=== PATIENT | female | born 1955 | race Caucasian/White ===

== ENCOUNTER → 2016-03-23 | Outpatient (CLI) | payer BC | END | disposition home or self-care (01) | LOC: LAB.O 08:00 | PROVIDERS: ATTEND Internal Medicine Infectious Disease | DX: Z89.429 Acquired absence of other toe(s), unspecified side (principal) ==

== ENCOUNTER → 2016-03-25 | Outpatient (CLI) | payer BC | END | disposition home or self-care (01) | LOC: LAB.O 08:21 | PROVIDERS: ATTEND Internal Medicine Infectious Disease | DX: L97.513 Non-pressure chronic ulcer of other part of right foot with necrosis of muscle (principal) ==

== ENCOUNTER → 2016-03-29 | Outpatient (CLI) | payer BC | END | disposition home or self-care (01) | LOC: LAB.O 09:38 | PROVIDERS: ATTEND Family Medicine | DX: L97.513 Non-pressure chronic ulcer of other part of right foot with necrosis of muscle (principal) ==

== ENCOUNTER → 2016-09-05 | Outpatient (CLI) | payer BC | END | disposition home or self-care (01) | LOC: GMAL 10:14 | PROVIDERS: ATTEND Family Medicine | DX: Z00.01 Encounter for general adult medical examination with abnormal findings (principal) ==

== ENCOUNTER → 2016-10-19 | Outpatient (CLI) | payer SELFPAY | LOC: GMAL 10:50 | PROVIDERS: ATTEND Family Medicine | DX: D53.9 Nutritional anemia, unspecified (principal) ==

== ENCOUNTER 2016-11-28 09:28 | Observation (INO) | payer BC ==
[2016-11-28] MEDS ORDERED: cefTRIAXone SODIUM 1 GM in SODIUM CHL 0.9% 50ML MIN-BAG+ 50 ML IVPB ONE (10:39)
[2016-11-28] MEDS ORDERED: SODIUM CHLORIDE 0.9% 1000ML 1,000 ML IVS ONE (10:40)
[2016-11-28] MEDS ORDERED: POTASSIUM CHLORIDE INJ 40 MEQ 40 MEQ in SODIUM CHLORIDE 0.9% 250ML 250 ML IVPB ONE (10:40)
--- NOTE | 2016-11-28 10:41 | RAD ---
EXAM DESCRIPTION: Abdomen Series CLINICAL HISTORY: vomiting, no bm in 8 days COMPARISON: November 07, 2016 FINDINGS: AP supine and upright views of the abdomen show a nonspecific, nonobstructive bowel gas pattern with no evidence for free intraperitoneal air. Surgical clips from cholecystectomy are seen. No air-filled dilated loops of small bowel are seen. No significant air-fluid levels are identified. No obvious organomegaly is seen. No abnormal calcifications are seen in the expected location of the renal collecting systems. Normal-appearing amount of formed fecal material throughout the colon is seen without obvious radiographic evidence of fecal impaction. Single view of the chest shows cardiac silhouette and pulmonary vasculature to be within normal limits. Lungs are normally aerated and clear. Left subclavian Mediport appears in good positioning with tip in the midsuperior vena cava. IMPRESSION: Nonspecific abdominal series Electronically signed by: Obdulio Gonzales MD 11/28/2016 10:39 AM CDT
[2016-11-28] MEDS ORDERED: METOCLOPRAMIDE HCL INJ 10 MG/2 ML VIAL IV ONE (10:58)
[2016-11-28] MEDS ORDERED: FLUCONAZOLE 150 MG TAB PO ONE (10:58)
[2016-11-28] MEDS ORDERED: cefTRIAXone SODIUM 1 GM VIAL ONE (11:09)
[2016-11-28] MEDS ORDERED: SODIUM CHL 0.9% 50ML MIN-BAG+ 50 ML IVPB ONE (11:09)
--- NOTE | 2016-11-28 11:20 | ED.PDOC ---
History of Present Illness - General Chief Complaint: GI Problem Stated Complaint: nausea and vomiting Time Seen by Provider: 11/28/16 09:42 Source: patient Exam Limitations: no limitations - History of Present Illness Initial Comments: The patient is a 61-year-old female presenting to the emergency room secondary to nausea and vomiting that been going on for at least the last couple of days. She has had nausea for longer than that. She does have a long- standing history of gastroparesis as well as chronic constipation. She has been unable to take her daily oral medications for the last 24-48 hours. She has thrown up a bunch of them. She reports her blood sugars have been well controlled and she has been taking her insulin. She is not having any abdominal pain. She has not had a bowel movement in 8 days which is not entirely unusual for her. She was treated for constipation by her primary care doctor 2 or 3 weeks ago. She reports having fever 2 or 3 weeks ago but none in the last 10 days. No syncope. She is feeling weaker since she's been unable to tolerate even liquids to some extent. She has no real abdominal pain and palpation. She is morbidly obese. She does have a large ventral hernia that is chronic. It is nontender to palpation. Due to the obesity I am uncertain whether this is entirely reducible.the patient has a CT scan of the abdomen and pelvis in 2014 was reassuring. She also had endoscopies apparently performed towards the end of 2014 that showed only a colonic polyp. This is by secondhand information.he has had a history of breast cancer. Timing/Duration: unsure Severity: moderate Improving Factors: nothing Worsening Factors: nothing Associated Symptoms: loss of appetite, malaise, nausea/vomiting Allergies/Adverse Reactions: Allergies Penicillin G Allergy (Mild, Verified 07/30/14 16:51) Rash white blisters BEATRIZ Inhibitors Adverse Reaction (Severe, Verified 07/30/14 16:50) Other bottoms out BP Escitalopram [From Lexapro] Adverse Reaction (Mild, Verified 07/30/14 16:50) Cough Home Medications: Ambulatory Orders Csakanbxzwphd-Gsos-Kboyhzipyd [Fioricet] 1 ea PO Q6H PRN 12/07/12 Insulin Regular (Human) [Humulin R] 50 unit IJ BID 12/07/12 Insulin,Isop(Human(NPH) [Humulin N] 70 units BID 12/07/12 Nortriptyline HCl 75 mg PO BEDTIME 12/07/12 Omeprazole [Prilosec Cap] 40 mg PO DAILY 12/07/12 Oxybutynin Chloride 5 mg PO BID 12/07/12 Pravastatin Sodium 40 mg PO BEDTIME 12/07/12 Carbidopa-Levodopa [Carbidopa/Levodopa 25-100 mg] 1 tab PO BEDTIME 05/19/14 Losartan Potassium [Cozaar] 50 mg PO DAILY 05/19/14 Metformin HCl 500 mg PO BID 05/19/14 Pregabalin [Lyrica] 50 mg PO BEDTIME 05/19/14 Promethazine HCl 25 mg PO PRN PRN 05/19/14 Tamoxifen Citrate 20 mg PO DAILY 05/19/14 Cefdinir 300 mg PO BID #14 cap 01/10/15 Review of Systems - Review of Systems Constitutional: States: malaise EENTM: States: no symptoms reported Respiratory: States: no symptoms reported Cardiology: States: no symptoms reported Gastrointestinal/Abdominal: States: constipation, nausea, vomiting. Denies: abdominal pain, diarrhea Genitourinary: States: no symptoms reported Musculoskeletal: States: other - chronic pains only Skin: States: no symptoms reported Neurological: States: no symptoms reported - hronic neuropathy Endocrine: States: increased thirst Hematologic/Lymphatic: States: no symptoms reported All other Systems: No Change from Baseline Past Medical History (General) - Patient Medical History Hx Stroke: No Hx Asthma: Yes Hx of COPD: No Hx Cardiac Disorders: Yes Hx Congestive Heart Failure: No Hx Pacemaker: No Hx Hypertension: Yes Hx Diabetes: Yes Hx Gastroesophageal Reflux: Yes Hx Cancer: - Tumor removed from left breast Hx MRSA: No Surgical History: cholecystectomy, tonsillectomy - Vaccination History Hx Influenza Vaccination: Yes - 2017 Hx Pneumococcal Vaccination: Yes - 2016 - Social History Hx Tobacco Use: No Hx Alcohol Use: No Hx Substance Use: No Hx Substance Use Treatment: No Hx Depression: No - Activities of Daily Living Hospice Agency (if applicable):: None - Female History Patient is a Female of Child Bearing Age (10 -59 yrs old): No Family Medical History - Family History Father Living Status: Hx Cardiac Disease: Yes Hx Family Diabetes: Yes Physical Exam - Physical Exam General Appearance: Alert, Comfortable, No apparent distress Eye Exam: bilateral normal Ears, Nose, Throat: hearing grossly normal, normal ENT inspection, normal pharynx Neck: full range of motion, normal inspection Respiratory: lungs clear, normal breath sounds, no respiratory distress, no accessory muscle use Cardiovascular/Chest: normal peripheral pulses, regular rate, rhythm, no edema Peripheral Pulses: radial,right: 2+, radial,left: 2+ Gastrointestinal/Abdominal: non tender, soft, other - see history of present illness Rectal Exam: deferred Back Exam: no CVA tenderness, no vertebral tenderness Extremity: normal range of motion - for the left lower extremity. 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 Skin Exam: normal color - ith the exception of some abrasions to her left lower extremity Comments: Vital Signs - 24 hr 11/28/16 09:36 Temperature 98.2 F Pulse Rate [ 82 pulse ox] Respiratory 20 Rate Blood Pressure 120/69 [Right Arm] O2 Sat by Pulse 99 Oximetry Progress - Progress Progress: 11/28/16 11:23 the patient is a 61-year-old female presenting with uncontrolled nausea and vomiting and inability to hold her oral medications. She does have a long-standing history of gastroparesis which is likely worsened by her inability to take her Reglan. She is receiving some IV fluids for mild dehydration and a dose of IV Reglan. Additionally she does appear to have a significant urinary tract infection and is receiving a dose of IV Rocephin. There is also significant yeast in her urine and she is receiving a dose of Diflucan orally for now. She may have to be dosed otherwise if she throws this up. She does have a known ventral hernia but it does not appear to be causing her any discomfort at this time. If vomiting persists after treatment of above then further evaluation of this may be warranted. Blood sugars appear to be fairly well controlled at this time. She does additionally have some hypokalemia and is receiving some IV potassium. tHis will have to be followed. - Results/Orders Results/Orders: acute abdominal series shows no evidence of obstruction, perforationor significant constipation at this time. Laboratory Tests 11/28/16 11/28/16 11/28/16 10:15 10:15 10:15 WBC 10.8 RBC 3.66 L Hgb 10.3 L Hct 30.8 L MCV 84.2 MCH 28.1 MCHC 33.3 RDW 13.1 Plt Count 296 MPV 7.4 Absolute Neuts (auto) 8.90 H Absolute Lymphs (auto) 1.20 Absolute Monos (auto) 0.60 Absolute Eos (auto) 0.10 Absolute Basos (auto) 0.10 Neutrophils % 82.1 H Lymphocytes % 10.9 L Monocytes % 5.9 Eosinophils % 0.6 L Basophils % 0.5 Sodium 137 Potassium 3.1 L Chloride 103 Carbon Dioxide 25 Anion Gap 12.1 BUN 12 Creatinine 0.85 BUN/Creatinine Ratio 14.1 Random Glucose 114 H Serum Osmolality 274.4 L Lactic Acid 1.7 Calcium 8.7 Magnesium 1.9 Total Bilirubin 0.7 AST 30 ALT 32 Alkaline Phosphatase 75 Creatine Kinase 22 L CK-MB (CK-2) 0.8 Troponin I < 0.02 Serum Total Protein 6.8 Albumin 2.7 L Globulin 4.1 H Albumin/Globulin Ratio 0.7 L Amylase 30 Lipase 20 L TSH 3.17 Urine Color Urine Appearance Urine pH Ur Specific [place] Urine Protein Urine Glucose (UA) Urine Ketones Urine Blood Urine Nitrite Urine Bilirubin Urine Urobilinogen Ur Leukocyte Esterase Urine RBC Urine WBC Ur Epithelial Cells Urine Bacteria Urine Yeast 11/28/16 10:25 WBC RBC Hgb Hct MCV MCH MCHC RDW Plt Count MPV Absolute Neuts (auto) Absolute Lymphs (auto) Absolute Monos (auto) Absolute Eos (auto) Absolute Basos (auto) Neutrophils % Lymphocytes % Monocytes % Eosinophils % Basophils % Sodium Potassium Chloride Carbon Dioxide Anion Gap BUN Creatinine BUN/Creatinine Ratio Random Glucose Serum Osmolality Lactic Acid Calcium Magnesium Total Bilirubin AST ALT Alkaline Phosphatase Creatine Kinase CK-MB (CK-2) Troponin I Serum Total Protein Albumin Globulin Albumin/Globulin Ratio Amylase Lipase TSH Urine Color Yellow Urine Appearance Sl cloudy Urine pH 6.0 Ur Specific [place] 1.015 Urine Protein 30 Urine Glucose (UA) Negative Urine Ketones Negative Urine Blood Trace-intact H Urine Nitrite Negative Urine Bilirubin Negative Urine Urobilinogen 2.0 H Ur Leukocyte Esterase Small H Urine RBC 5-10 H Urine WBC Tntc H Ur Epithelial Cells 20-30 Urine Bacteria 3+ H Urine Yeast 1+ budding H Departure - Departure Clinical Impression: Hypokalemia, Cystitis Vomiting Qualifiers: Vomiting type: unspecified Vomiting Intractability: non-intractable Nausea presence: with nausea Qualified Code(s): R11.2 - Nausea with vomiting, unspecified Disposition: Admit Patient Referrals: Jonathan Johnson III, MD [Primary Care Provider] - 1-2 Weeks Home Medications: Ambulatory Orders Xsxjnsercbnbi-Aiiv-Gzslkzbkhz [Fioricet] 1 ea PO Q6H PRN 12/07/12 Insulin Regular (Human) [Humulin R] 50 unit IJ BID 12/07/12 Insulin,Isop(Human(NPH) [Humulin N] 70 units BID 12/07/12 Nortriptyline HCl 75 mg PO BEDTIME 12/07/12 Omeprazole [Prilosec Cap] 40 mg PO DAILY 12/07/12 Oxybutynin Chloride 5 mg PO BID 12/07/12 Pravastatin Sodium 40 mg PO BEDTIME 12/07/12 Carbidopa-Levodopa [Carbidopa/Levodopa 25-100 mg] 1 tab PO BEDTIME 05/19/14 Losartan Potassium [Cozaar] 50 mg PO DAILY 05/19/14 Metformin HCl 500 mg PO BID 05/19/14 Pregabalin [Lyrica] 50 mg PO BEDTIME 05/19/14 Promethazine HCl 25 mg PO PRN PRN 05/19/14 Tamoxifen Citrate 20 mg PO DAILY 05/19/14 Cefdinir 300 mg PO BID #14 cap 01/10/15 Decision To Admit - Decistion To Admit Decision to Admit Reason: Medical Nature Decision to Admit Date: 11/28/16 Decision to Admit Time: 11:25
[2016-11-28] MEDS ORDERED: SODIUM CHLORIDE 0.9% 250ML 250 ML ONE (11:23)
[2016-11-28] MEDS ORDERED: POTASSIUM CHLORIDE 40mEq 20ML VIAL ONE (11:23)
[2016-11-28] MEDS ORDERED: CHLORHEXIDINE GLUCONATE 4 % 15 ML UD TOP ONE (12:31)
--- NOTE | 2016-11-28 12:32 | HP ---
SUPERVISING PHYSICIAN: Xander Vila M.D. CHIEF COMPLAINT: Nausea and vomiting. HISTORY OF PRESENT ILLNESS: Ms. Lockwood is a 61 year-old female patient that initially presented to the Emergency Department due to nausea and vomiting that she had been having for the last several days. She does have a longstanding history of gastroparesis as well as some chronic constipation. Due to the nausea and vomiting, she has not been able to take her normal daily oral medications for the last 48 hours which include Reglan. She notes that her blood sugars have remained well controlled and she has been taking her insulin as normal. She has had some mild abdominal pains mainly in the left upper quadrant and then noted that she has not had a decent bowel movement in 8 days. She was recently treated for constipation by her primary care physician, Dr. Johnson, within the last several weeks and was started on Linzess. She notes that she is beginning to feel weak secondary to unable to have adequate p.o. intake. Given that the patient is also an insulin-dependent diabetic and has a longstanding history of gastroparesis, and has not been able to hold any oral medications down, Dr. Zacarias, E. R. physician, requested that the patient be placed in Observation for further evaluation and treatment in regards to the underlying gastroparesis and constipation. It was also noted on laboratory studies that she had a urinary tract infection. A few of her laboratory studies showed that her white count was within normal limits but she did have an early left shift. Chemistries showed she had a mild hypokalemia which was started on correction in the Emergency Department with IV potassium. Her glucose was 114, lactic acid was 1.7. Liver functions showed to be within normal limits as well as pancreatic enzymes were within normal limits. The patient now is going to be placed in Observation for initiation of IV antibiotics along with efforts to relieve her constipation and utilization of IV medications to include Reglan to relieve the nausea and vomiting. PAST MEDICAL HISTORY: 1. Hyperlipidemia. 2. Hypertension. 3. 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 4. Migraine headaches. 5. History of breast cancer diagnosed in 2013 with lobular carcinoma in situ. 6. Obesity. 7. Multiple diabetic foot ulcers in the past. 8. Temporomandibular joint. 9. Depression. 10. Restless leg syndrome. 11. Gastroparesis secondary to diabetes. PAST SURGICAL HISTORY: 1. Cholecystectomy laparosc[place] [address] Medrano. 2. Tonsillectomy in 1963. 3. Incision and drainage of the left foot in 2006. 4. Cervical SAMY by Dr. Romero in 2007. 5. Amputation of the left great toe MTP joint and resection of the distal head of the first metatarsal in 2011. 6. Biopsy of left breast mass with excision of left breast mass after needle localization which showed a pathology of lobular carcinoma in situ. 7. Subclavian venous access port placed by Dr. Medrano in 2014. 8. [id number] amputation on the right in [address] Smith. 9. Echocardiogram with an ejection fraction of 70% with grade 1 diastolic dysfunction. HOME MEDICATIONS: 1. Humulin N 35 units subcue at bedtime. 2. Humulin N 15 units subcue daily. 3. Regular insulin sliding scale a.c. and h.s. 4. Ropinirole HCl 1 mg at bedtime as needed. 5. Singulair 10 mg at bedtime. 6. Reglan 5 mg 3 times a day. 7. Vitamin E 1,000 units twice daily. 8. Simvastatin 20 mg daily. 9. Singulair 10 mg 3 times a day. 10. Metamucil 48.57% 3 times a day. 11. Losartan 50 mg daily. 12. Linzess 290 mcg daily. 13. Pravastatin sodium 40 mg daily. 14. Adult aspirin regimen 81 mg daily. ALLERGIES: PENICILLIN G, BEATRIZ INHIBITORS AND ESCITALOPRAM. FAMILY HISTORY: Mother at age 77 secondary to gallbladder cancer. Father at age 75 from heart attack. He had diabetes mellitus as well as congestive heart failure. SOCIAL HISTORY: The patient has worked as a cook at the [employer]. She is . She lives in [place]. She quit smoking in 1979. Prior to that she smoked 3 to 4 packs a day. She denies any alcohol or illicit drug use. REVIEW OF SYSTEMS: CONSTITUTIONAL: Notes that she has had some general malaise. No reported fever or chills. HEENT: No sinus pressure, headaches, congestion. RESPIRATORY: No shortness of breath, cough or wheezing. CARDIOVASCULAR: No palpitations, syncopal episodes, chest pain or shortness of breath. GASTROINTESTINAL: As noted in the history of present illness, chronic constipation with nausea and vomiting, but no reported diarrhea with some left upper quadrant pain. GENITOURINARY: Denies any dysuria, hematuria or other urinary symptoms. MUSCULOSKELETAL: Chronic pains with a itsia-pin-pepe amputation on the right utilizing a prosthesis. NEUROLOGIC: Denies any syncopal episodes but does have chronic neuropathy secondary to diabetes. PHYSICAL EXAMINATION: VITAL SIGNS: Temperature 98.2, pulse 82, blood pressure 120/69, respirations 20 , satting 99% on room air. Admission weight was 106.8 kg. GENERAL: The patient appears to be alert and comfortable on admission to the Medical/Surgical floor. She is obese but appears to be well hydrated. HEENT: Tympanic membranes are clear bilaterally. Oropharynx is pink and moist without any lesions. NECK: Supple, non-tender with full range of motion. There is no jugular venous distention noted. CHEST: Lungs are clear to auscultation bilaterally without any rhonchi, wheezing or rales. CARDIOVASCULAR: Regular rate and rhythm without appreciable murmurs, gallops, or rubs. ABDOMEN: Obese but soft with some left upper quadrant tenderness. No rebound tenderness. EXTREMITIES: No clubbing, cyanosis or edema. There is a [id number] amputation on the right. NEUROLOGIC: Cranial nerves II-XII are grossly intact. She is alert and oriented times three. She has chronic left neuropathy. Facial features are symmetrical. Extraocular movements are within normal limits. There was no notable nystagmus. INTEGUMENT: There are no rashes or lesions, just some small abrasions noted to the left lower extremity. LABORATORY: CBC on admission showed a white count of 10,800 with hemoglobin 10.3, hematocrit 30.8 with platelet count 296,000. Differential does show early left shift. Chemistries: Potassium was low at 3.1, sodium was normal at 137, BUN 12, creatinine 0.85, glucose 114, serum osmolality 274 with lactic acid of 1.7. Liver functions showed to be within normal limits. Troponin was less than 0.02. Lipase and amylase were both within normal limits. TSH was 3.17. Urinalysis showed trace intact blood, 2+ urobilinogen, small amount of leukocyte esterase with 5 to 10 RBCs, too numerous to count WBCs, 20 to 30 epithelials, bacteria 3+. Urine showed 1+ budding yeast. RADIOLOGY: Abdominal x-ray in the Emergency Department prior to admission showed nonspecific abdominal series. Abdominal/pelvic CT after admission without contrast per radiology interpretation showed a small to moderate amount of colonic stool and gas but no evidence of obstruction, gastric dilation or other acute abnormalities explaining the left upper quadrant pain. There is also note of a 4 cm left adrenal myolipoma which is unchanged from previous CT in 2015 in December, but due to the size and risk of hemorrhage Radiology recommended possible surgical consultation. A 5.4 cm left ovarian cyst, recommend followup in 6 to 12 weeks, 14 cm infraumbilical fat-containing midline anterior abdominal wall hernia without strangulation showing to be stable since December 2014. ASSESSMENT: 1. 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 2. Persistent nausea and vomiting likely secondary to complications from gastroparesis from diabetes and ostipation. 3. Hypertension. 4. Migraine headaches. 5. History of breast cancer diagnosed in 2013 with lobular carcinoma in situ. 6. Obesity noted with a body mass index of 41.7. 7. Depression. 8. Restless leg syndrome. 9. Acute on chronic constipation. 10. Electrolyte imbalance to include moderate hypokalemia. PLAN: Ms. Lockwood will be placed in Observation at least tonight to assist in helping with obstipation and relieving the constipation. Will start with a soap suds enema and should she show good results with this and is able to tolerate an oral diet, will try some magnesium citrate as she says Milk of Magnesia just makes her constipation worse. She will be on DVT prophylaxis as per protocol. Will resume her home medications once those have been updated and verified. Given that she is not able to hold any Reglan p.o., will change to IV form and try an 1800 calorie ADA diet to see how well she tolerates food. She did get potassium replacement in the Emergency Department. Will plan to repeat a CMP in the morning. Will anticipate length of stay to be at least 1 to 2 days. Until then, will continue to monitor and treat appropriately. #[id number] [facility]
[2016-11-28] MEDS ORDERED: ONDANSETRON INJ 4 MG/2 ML VIAL IV PRN (12:55)
[2016-11-28] MEDS ORDERED: GLUCAGON INJ 1 MG VIAL SUBCU PRN (12:55)
[2016-11-28] MEDS ORDERED: DEXTROSE 50% 25 GM/50 ML SYG IV PRN (12:55)
[2016-11-28] MEDS ORDERED: IV SET AND CAP CHANGE INJ INJ SCH (13:00)
--- NOTE | 2016-11-28 15:47 | CT ---
EXAM DESCRIPTION: Abdoment/Pelvis w/o Contrast CLINICAL HISTORY: severe constipation, gastroparesis, LUQ pain COMPARISON: January 07, 2015 TECHNIQUE: CT of the abdomen and Pelvis was performed without IV contrast. This exam was performed according to our departmental dose-optimization program, which includes automated exposure control, adjustment of the mA and/or kV according to patient size and/or use of iterative reconstruction technique. FINDINGS: The lung bases are unremarkable. There is no pneumoperitoneum, ascites or adenopathy. Mural calcifications are noted in the abdominal aorta without aneurysm. The gallbladder is surgically absent. No hiatal hernia. The stomach is not distended, and no gastric wall thickening is identified. No dilated small bowel loops. There is a small amount amount stool and gas scattered throughout the colon without colonic wall thickening or pericolonic inflammation. There is a 5.4 cm left adnexal cyst probably of left ovarian origin. The uterus and right ovary are unremarkable. No bladder wall thickening. The liver, spleen, pancreas and kidneys are unremarkable. No right adrenal nodule. There is a 4 cm left adrenal nodule containing some fat density consistent with myelolipoma, stable from December,. A fat-containing 14 cm infraumbilical midline anterior abdominal wall hernia is noted without apparent complication, not significantly changed from the previous CT. No concerning bone lesion. IMPRESSION: Small to moderate amount of colonic stool and gas, but no evidence of obstruction, gastric dilation or other acute abnormality to explain left upper quadrant pain. 4 cm left adrenal myelolipoma, unchanged from December,. Because of its size and risk of hemorrhage, surgical consultation should be considered. 5.4 cm left ovarian cyst. Follow-up ultrasound in 6-12 weeks is recommended. 14 cm infraumbilical fat-containing midline anterior abdominal wall hernia without, getting feature, stable from December,. Electronically signed by: Sanjeev Rose MD 11/28/2016 3:45 PM CDT
[2016-11-28] MEDS: METOCLOPRAMIDE HCL INJ 10 MG/2 ML VIAL IV SCH ×2 (16:00→21:30)
[2016-11-28] MEDS ORDERED: MAGNESIUM CITRATE 300 ML BTTL PO ONE (16:59)
--- NOTE | 2016-11-28 17:19 | PCM.CORE ---
Physician DVT/VTE - Nurse DVT Assessment & Total Each Risk Factor Represents 2 Points: Age 60-74 Each Risk Factor is 1 Point: Obesity (BMI >25) DVT Assessment Score: 3 - 3-4 High Risk Treatments: Early Ambulation *, Sequential Compression Device - left leg only - 5 or more Very High Risk Pharmacological: Enoxaparin 40mg SQ Daily
[2016-11-28] MEDS: ENOXAPARIN SODIUM 40 MG/0.4 ML SYG SUBCU SCH (17:35)
[2016-11-28] MEDS ORDERED: INSULIN LISPRO 100 UNITS/ML PEN SUBCU SCH (18:00)
[2016-11-28] MEDS ORDERED: PRAVASTATIN SODIUM 20 MG TAB ONE (20:12)
[2016-11-28] MEDS ORDERED: INSULIN,ISOP(HUMAN(NPH) 100 UNITS/ML PEN SUBCU ONE (20:13)
[2016-11-28] MEDS ORDERED: INSULIN NPH SC SCH (21:00)
[2016-11-28] MEDS ORDERED: MONTELUKAST 10 MG TAB PO SCH (21:00)
[2016-11-28] MEDS ORDERED: [UNRECOGNIZED DRUG - OTHER] SC SCH (21:00)
[2016-11-28] MEDS ORDERED: NON-FORMULARY MEDICATION 1 EA MIS (Pravastatin Sodium [Pravastatin Sodium] 40 MG) PO SCH (21:00)
[2016-11-28] MEDS: SODIUM CHLORIDE 0.9% (FLUSH) 10 ML SYG IV PRN (21:29)
[2016-11-28] MEDS: INSULIN LISPRO 100 UNITS/ML PEN SUBCU SCH (21:30)
[2016-11-28] MEDS: MONTELUKAST 10 MG TAB PO SCH (21:38)
[2016-11-29] MEDS: SODIUM CHLORIDE 0.9% (FLUSH) 10 ML SYG IV PRN ×2 (06:31→20:28)
[2016-11-29] MEDS: METOCLOPRAMIDE HCL INJ 10 MG/2 ML VIAL IV SCH ×2 (06:32→11:53)
[2016-11-29] MEDS: INSULIN LISPRO 100 UNITS/ML PEN SUBCU SCH ×4 (07:34→21:00)
[2016-11-29] MEDS: LOSARTAN POTASSIUM 25 MG TAB PO SCH (08:30)
[2016-11-29] MEDS ORDERED: cefTRIAXone SODIUM 1 GM in SODIUM CHL 0.9% 50ML MIN-BAG+ 50 ML IVPB SCH (08:30)
[2016-11-29] MEDS: ASPIRIN EC 81 MG TAB PO SCH (08:30)
[2016-11-29] MEDS: MONTELUKAST 10 MG TAB PO SCH ×2 (08:30→20:59)
[2016-11-29] MEDS: INSULIN,ISOP(HUMAN(NPH) 100 UNITS/ML PEN SUBCU SCH (08:32)
[2016-11-29] MEDS ORDERED: CARBOXYMETHYLCELLULOSE 0.5% OPHTH SOL 0.4 ML UD BOTH_EYES PRN (08:36)
[2016-11-29] MEDS ORDERED: cefTRIAXone SODIUM 1 GM VIAL ONE ×2 (08:37→19:58)
[2016-11-29] MEDS ORDERED: SODIUM CHL 0.9% 50ML MIN-BAG+ 50 ML IVPB ONE ×2 (08:37→19:57)
[2016-11-29] MEDS ORDERED: SIMVASTATIN 20 MG TAB PO SCH (09:00)
[2016-11-29] MEDS ORDERED: NON-FORMULARY MEDICATION 1 EA MIS (Linaclotide [Linzess] 290 MCG) PO SCH (09:00)
[2016-11-29] MEDS: FISH OIL 1,200 MG CAP PO SCH ×4 (10:48→20:59)
[2016-11-29] MEDS: VITAMIN E 1,000 IU CAP PO SCH ×2 (11:53→11:55)
[2016-11-29] MEDS ORDERED: CHLORHEXIDINE GLUC 4% 15ML 45 ML, WATER FOR IRRIGATION 1,000 ML TOP SCH ×2 (13:00)
--- NOTE | 2016-11-29 13:29 | PN ---
DATE: 11/29/16 SUBJECTIVE: The patient is feeling much improved today after starting ceftriaxone antibiotics yesterday in the Emergency Room for a significant urinary tract infection. Nausea and vomiting has also minimized and her chronic gastroparesis is now enabling her to tolerate her Reglan, which we will now switch over to oral therapy which was not tolerated at first. She has had a bowel movement which has helped some of her abdominal distention. Urine cultures are positive suggesting a Klebsiella, but with final results and sensitivity by tomorrow morning. The Rocephin will be increased to twice a day in anticipation of the culture and sensitivity results in the morning. Long discussion of her disability continues. She has had a right [id number] amputation and unfortunately she sometimes cross the prosthesis on top of her left doss which has resulted in some skin tears and some localized irritation which could develop into an infection with localized treatment to be initiated and special attention to cushion this prosthesis and to avoid crossing her legs in the future. OBJECTIVE: VITAL SIGNS: Afebrile. Pulse 78. Blood pressure 131/76. Pulse oximetry 97%. One bowel movement was noted. LUNGS: Generally clear. HEART: Regular. ABDOMEN: Obese, yet soft and feeling less discomfort today compared to yesterday. Fairly good urine output is evident. EXTREMITIES: There are several skin tears caused by the prosthesis on the anterior left doss which will require specialized attention. The right prosthesis does have a long spike which goes into the prosthetic leg to provide stability. A new prosthesis utilizing suction is to be received shortly. ASSESSMENT: 1. Diabetes mellitus, type 2, insulin dependent, with significant complications of chronic gastroparesis with an acute exacerbation requiring fluid supplementation, dietary intervention as well as medications to be given parenterally, having failed outpatient therapy, showing some improvement. 2. Significant peripheral neuropathy resulting eventually in the below-the- knee amputation with an infected foot ulcer showing failure to improve with therapy and with associated peripheral vascular occlusive disease. 3. History of hypertension. 4. History of migraine headaches. 5. History of breast cancer diagnosed in 2013 with lobular carcinoma in situ. 6. Body mass index elevated at 41.7 with obesity noted. 7. Chronic depression. 8. Chronic restless leg syndrome. 9. Chronic constipation with acute exacerbation, showing some slight improvement. 10. History of hypokalemia with further followup suggested. PLAN: The patient continues on observation with final culture and sensitivity by in the morning. Possibility of Klebsiella was evident, but final diagnosis pending. We will change Reglan back to p.o. and observe response. Try MiraLAX for constipation. Physical therapy to evaluate and give advice regarding her ability to ambulate and suggest possibility of a walking cane for a third point of stability. Increase Rocephin to b.i.d. anticipating culture and sensitivity in the morning. Await stool occult guaiac testing. Reevaluate and anticipate home in the morning if stable. #[id number] [facility]
[2016-11-29] MEDS: POLYETHYLENE GLYCOL 3350 17 GM PCKT PO SCH (14:03)
[2016-11-29] MEDS: METOCLOPRAMIDE HCL 5 MG TAB PO SCH ×2 (16:58→20:59)
[2016-11-29] MEDS: ENOXAPARIN SODIUM 40 MG/0.4 ML SYG SUBCU SCH (17:00)
[2016-11-29] MEDS ORDERED: MONTELUKAST 10 MG TAB ONE (19:57)
[2016-11-29] MEDS: cefTRIAXone SODIUM 1 GM in SODIUM CHL 0.9% 50ML MIN-BAG+ 50 ML IVPB SCH (20:28)
[2016-11-29] MEDS: CHLORHEXIDINE GLUC 4% 15ML 45 ML, WATER FOR IRRIGATION 1,000 ML TOP SCH ×2 (20:59)
[2016-11-29] MEDS ORDERED: INSULIN,ISOP(HUMAN(NPH) 100 UNITS/ML PEN SUBCU SCH (21:00)
[2016-11-29] MEDS ORDERED: PRAVASTATIN SODIUM 20 MG TAB PO SCH (21:00)
[2016-11-30] MEDS: METOCLOPRAMIDE HCL 5 MG TAB PO SCH ×2 (06:44→11:57)
[2016-11-30] MEDS: INSULIN LISPRO 100 UNITS/ML PEN SUBCU SCH ×2 (07:19→11:48)
[2016-11-30] MEDS ORDERED: SODIUM CHL 0.9% 50ML MIN-BAG+ 50 ML IVPB ONE (07:34)
[2016-11-30] MEDS ORDERED: cefTRIAXone SODIUM 1 GM VIAL ONE (07:35)
[2016-11-30] MEDS: cefTRIAXone SODIUM 1 GM in SODIUM CHL 0.9% 50ML MIN-BAG+ 50 ML IVPB SCH (07:49)
[2016-11-30] MEDS: SODIUM CHLORIDE 0.9% (FLUSH) 10 ML SYG IV PRN ×2 (07:49→14:02)
[2016-11-30] MEDS: INSULIN,ISOP(HUMAN(NPH) 100 UNITS/ML PEN SUBCU SCH (08:42)
[2016-11-30] MEDS: LOSARTAN POTASSIUM 25 MG TAB PO SCH (08:45)
[2016-11-30] MEDS: FISH OIL 1,200 MG CAP PO SCH (08:45)
[2016-11-30] MEDS: POLYETHYLENE GLYCOL 3350 17 GM PCKT PO SCH (08:45)
[2016-11-30] MEDS: VITAMIN E 1,000 IU CAP PO SCH (08:45)
[2016-11-30] MEDS: ASPIRIN EC 81 MG TAB PO SCH (08:45)
[2016-11-30] MEDS: MONTELUKAST 10 MG TAB PO SCH (08:45)
[2016-11-30] MEDS: CHLORHEXIDINE GLUC 4% 15ML 45 ML, WATER FOR IRRIGATION 1,000 ML TOP SCH ×2 (08:46)
[2016-11-30 13:29] VITALS: TEMP 96.7
[2016-11-30 13:40] VITALS: BP 124/73; O2SAT 99
[2016-11-30] MEDS ORDERED: HEPARIN SODIUM 100 U/ML 5 ML SYG IV ONE (13:45)
--- NOTE | 2016-11-30 14:25 | DS ---
DISCHARGE DIAGNOSIS: 1. Chronic diabetes mellitus, type 2, insulin dependent, with significant complications of chronic gastroparesis with an acute exacerbation requiring parenteral fluid supplementation, dietary intervention and changes and alteration of treatment of the diabetes, having failed outpatient therapy and showing some clinical improvement. 2. Significant urinary tract infection with Klebsiella pneumoniae species on culture, treated with ceftriaxone parenterally, showing clinical improvement and discharged home on fluoroquinolones for a total of ten day treatment. 3. Significant peripheral neuropathy resulting eventually in the below-the- knee amputation with an infected foot on the right, having failed outpatient therapy and with associated peripheral vascular occlusive disease with rehabilitation to continue as she attempts to walk with a prosthesis. 4. History of hypertension. 5. History of migraine headaches. 6. History of breast cancer diagnosed in 2013 with lobular carcinoma in situ. 7. Body mass index elevated at 41.7 with obesity noted. 8. Chronic depression. 9. Chronic restless leg syndrome. 10. Chronic constipation with acute exacerbation, showing some improvement. 11. History of hypokalemia with further followup encouraged. HISTORY OF PRESENT ILLNESS: This 61-year-old white female was admitted to the hospital from the Emergency Room due to protracted nausea and vomiting worsening for the last several days. She has had a history of similar symptoms in the past and has usually been treated with Reglan and dietary intervention because of the gastroparesis associated as a complication of chronic insulin dependent diabetes mellitus. She is followed closely by Dr. Johnson in the clinic. In the Emergency Room, she was also found to have evidence of a urinary tract infection and started on ceftriaxone which showed some ability to improve her general condition after treatment was initiated. She was placed in gastrointestinal rest and slowly advanced on her diet until she was back to her normal diabetic diet and Reglan had to be given parenterally because she was unable to tolerate the pills. This was eventually changed back to oral medications which she continued to tolerate until the point where she was able to go home with continued close observation. LABORATORY: White count stayed normal at 8,100, hemoglobin stable at 10. Potassium up to 4 and BUN stable at 10, creatinine 0.74. Glucose varied, going a little high in the evening up to the 300s and down to lower levels in the morning time, suggesting a need to continue with alteration of her insulin dosings. Lactic was 1.7. Liver enzymes normal. Troponin 0. Albumin 2.4. Urinalysis initially showed some trace of hematuria, pyuria as well as bacteruria. Stool guaiac was negative. Culture of the urine showed Klebsiella pneumoniae with pansensitivity except resistance to ampicillin to which she has an allergy already noted. Abdominopelvic CT scan was performed and shows no significant evidence of obstruction. She does have a 4 cm left adrenal myelolipoma, unchanged from December of 2014, with close followup continuing with Dr. Johnson in the clinic. There is a 5.4 cm left ovarian cyst with repeat ultrasound suggested in approximately 3 to 4 months. A 14 cm infraumbilical fat filled midline anterior abdominal wall hernia is also noted and stable since December of 2014. HOSPITAL COURSE: The patient was feeling much improved on the morning of discharge and will have continued outpatient management with Dr. Johnson in the clinic. PLAN: The patient is discharged home with to have close followup with Dr. Johnson in ten days, at which time a urinalysis can be obtained to further examine the urine for persistence of the infection. Drink plenty of fluids. Try some yogurt as well as Align for the probiotic effect while taking the antibiotics. Closely monitor the diabetes and adjust the insulin dose as required to assist with diabetic management. Cleanse the left doss with diluted Hibiclens daily, especially while in the shower, to assist with cleaning and healing of that skin. Followup with the home medications and questions that might be raised to be addressed with Dr. Johnson. Note that the Humulin N dosings have been changed to 35 units in the morning and 20 units in the evening. Call Dr. Johnson to get assistance in determining the best insulin dosages when questions might arise. Avoid falls. Return if not improving. #[id number] [facility]
[2016-11-30] MEDS ORDERED: PRAVASTATIN SODIUM 20 MG TAB PO SCH (21:00)
== END 2016-11-30 14:27 | disposition home or self-care (01) ==
LOC: ER 09:28 → MS 12:30 → INTOOBSV 12:30
PROVIDERS: ADMIT Nurse Practitioner Family; ATTEND Emergency Medicine
DX: E11.43 Type 2 diabetes mellitus with diabetic autonomic (poly)neuropathy (principal); K31.84 Gastroparesis; E11.42 Type 2 diabetes mellitus with diabetic polyneuropathy; N39.0 Urinary tract infection, site not specified; B96.1 Klebsiella pneumoniae [K. pneumoniae] as the cause of diseases classified elsewhere; I10 Essential (primary) hypertension; E66.9 Obesity, unspecified; F32.9 Major depressive disorder, single episode, unspecified; G25.81 Restless legs syndrome; K59.09 Other constipation; E87.6 Hypokalemia; E86.0 Dehydration; E87.8 Other disorders of electrolyte and fluid balance, not elsewhere classified; D17.79 Benign lipomatous neoplasm of other sites; N83.202 Unspecified ovarian cyst, left side; K42.9 Umbilical hernia without obstruction or gangrene; E78.5 Hyperlipidemia, unspecified; E11.319 Type 2 diabetes mellitus with unspecified diabetic retinopathy without macular edema; G43.909 Migraine, unspecified, not intractable, without status migrainosus; Z68.41 Body mass index [BMI] 40.0-44.9, adult; Z16.11 Resistance to penicillins; Z79.4 Long term (current) use of insulin; Z79.82 Long term (current) use of aspirin; Z79.899 Other long term (current) drug therapy; Z89.511 Acquired absence of right leg below knee; Z88.0 Allergy status to penicillin; Z88.8 Allergy status to other drugs, medicaments and biological substances; Z87.891 Personal history of nicotine dependence; Z85.3 Personal history of malignant neoplasm of breast; Z80.0 Family history of malignant neoplasm of digestive organs; Z82.49 Family history of ischemic heart disease and other diseases of the circulatory system; Z83.3 Family history of diabetes mellitus
CPT/HCPCS: 36415 ×4; 36416 ×7; 74020; 74176; 80048; 80053 ×2; 81001 ×2; 82150; 82270; 82550; 82553; 82948 ×8; 83605; 83690; 83735; 84443; 84484; 85025 ×3; 87086; 87088; 87186; 94760 ×3; 96365; 96366 ×3; 96367; 96372 ×3; 96375; 96376 ×3; 97116; 97162; 99284; G0378; G8978; G8979; G8980; J0696 ×4; J1642; J1650 ×2; J1815 ×2; J2765 ×5; J3480; J7030; J7050 ×5

== ENCOUNTER → 2016-12-06 | Outpatient (CLI) | payer BC | END | disposition home or self-care (01) | LOC: GMAL 14:35 | PROVIDERS: ATTEND Family Medicine | DX: N39.0 Urinary tract infection, site not specified (principal) ==

== ENCOUNTER → 2017-02-08 | Outpatient (CLI) | payer BC | END | disposition home or self-care (01) | LOC: GMAL 10:37 | PROVIDERS: ATTEND Family Medicine | DX: N39.498 Other specified urinary incontinence (principal) ==

== ENCOUNTER 2017-05-14 10:55 | Emergency (ER) | payer BC ==
[2017-05-14 11:09] VITALS: BP 152/71; TEMP 97.9; O2SAT 97
--- NOTE | 2017-05-14 11:24 | ED.PDOC ---
History of Present Illness - General Chief Complaint: Skin/Abrasion/Tear Stated Complaint: Left leg skin irritation and swelling Time Seen by Provider: 05/14/17 11:20 Source: patient, EMS notes reviewed - History of Present Illness Initial Comments: Nya Lockwood 61 y/o female came to er with leg swelling left and weeping skin blisters /vesicles.Denies history of trauma,fever ,chills,pain.Has diabetes mellitus and hypertension. Timing/Duration: other - 3 days ago Severity: moderate Location: extremities - left leg Improving Factors: nothing Worsening Factors: nothing Associated Symptoms: blisters Allergies/Adverse Reactions: Allergies Penicillin G Allergy (Mild, Verified 05/14/17 11:10) Rash white blisters BEATRIZ Inhibitors Adverse Reaction (Severe, Verified 05/14/17 11:10) Other bottoms out BP Escitalopram [From Lexapro] Adverse Reaction (Mild, Verified 05/14/17 11:10) Cough Home Medications: Ambulatory Orders Pravastatin Sodium 40 mg PO BEDTIME 12/07/12 Losartan Potassium [Cozaar] 50 mg PO DAILY 05/19/14 Aspirin [Adult Aspirin Regimen] 81 mg PO DAILY 11/28/16 Metoclopramide HCl [Reglan] 5 mg PO TID 11/28/16 Montelukast [Singulair] 10 mg PO BID 11/28/16 Lesage-3 Fatty Acids [Fish Oil] 1 cap PO BID 11/28/16 Ropinirole Hydrochloride [Ropinirole HCl] 1 mg PO BEDTIME PRN 11/28/16 Vitamin E [E-400] 400 unit PO BID 11/29/16 Insulin NPH (Human) (Isophane) [Humulin N] 20 unit SC BEDTIME #0 11/30/16 Insulin NPH (Human) (Isophane) [Humulin N] 35 unit SC DAILY #0 11/30/16 Insulin Regular (Human) [Novolin R] 10 unit SC AC PRN #0 11/30/16 Ciprofloxacin [Cipro] 500 mg PO BID 10 Days #20 tab 05/14/17 Mupirocin 2 % Oint [Bactroban Oint] 22 gm TOP BID 14 Days #1 tube 05/14/17 Oxybutynin Chloride 5 mg PO BEDTIME 05/14/17 Pantoprazole Tablet [Protonix] 40 mg PO ACBK 04/01/18 Polyethylene Glycol 3350 [Miralax] 17 gm PO DAILY 05/14/17 Review of Systems - Review of Systems Constitutional: States: no symptoms reported EENTM: States: no symptoms reported Respiratory: States: no symptoms reported Cardiology: States: no symptoms reported Skin: States: see HPI Neurological: States: numbness - neuropathy diabetic Endocrine: States: no symptoms reported Hematologic/Lymphatic: States: no symptoms reported Past Medical History (General) - Patient Medical History Hx Seizures: No Hx Stroke: No Hx Asthma: Yes - seasonal allergies Hx of COPD: Yes Hx Cardiac Disorders: Yes Hx Congestive Heart Failure: No Hx Pacemaker: No Hx Hypertension: Yes Hx Diabetes: Yes - Diabetic gastroparesis Hx Gastroesophageal Reflux: Yes Hx Cancer: - Tumor removed from left breast Hx MRSA: No Surgical History: cholecystectomy, tonsillectomy, other - right bka,cts - Vaccination History Hx Influenza Vaccination: Yes - 2016 Hx Pneumococcal Vaccination: - unknown - Social History Hx Tobacco Use: Yes - Quit 1990 Hx Alcohol Use: No Hx Substance Use: No Hx Substance Use Treatment: No Hx Depression: No Hx Physical Abuse: No Hx Emotional Abuse: No - Activities of Daily Living Grooming Ability: Independent Eating (Feeding) Ability: Independent Toileting Ability: Independent Family Medical History - Family History Father Living Status: Hx Cardiac Disease: Yes Hx Family Diabetes: Yes Hx Family Cancer: Yes - mom-gallbladder Mother Living Status: Cause of : Gall bladder Cancer Hx Family Cancer: Yes Physical Exam - Physical Exam General Appearance: Alert, Comfortable, No apparent distress Eyes, Ears, Nose, Throat Exam: PERRL/EOMI Neck: non-tender, full range of motion, supple Cardiovascular/Chest: regular rate, rhythm, no murmur Respiratory: chest non-tender, lungs clear, normal breath sounds Gastrointestinal/Abdominal: normal bowel sounds, non tender, soft, no organomegaly Extremity: no pedal edema, no calf tenderness, other - bka amputation right leg Neurologic: alert, oriented x 3 Skin Exam: warm/dry, normal color Skin Problem Location: lower extremities - left leg with swelling ,non tender Skin Character: drainage - clear, thickening, vesicular - eruption Progress - Progress Progress: 05/14/17 11:28 Vital Signs - 8 hr 05/14/17 11:00 Temperature 97.9 F Pulse Rate [ 92 H Left Radial] Respiratory 18 Rate Blood Pressure 152/71 [Left Arm] O2 Sat by Pulse 97 Oximetry 05/14/17 11:28 open vesicles /blisters cleaned with sterile water applied tripled anti biotics and covered with sterile dressing. Departure - Departure Clinical Impression: Stasis dermatitis of right lower extremity due to peripheral venous hypertension Time of Disposition: 11:30 Disposition: Discharge to Home or Self Care Condition: Fair Departure Forms: ED Discharge - Pt. Copy, Patient Portal Self Enrollment Instructions: DI for Wound Infection Referrals: Jonathan Johnson III, MD [Primary Care Provider] - 1-2 Weeks Prescriptions: Ciprofloxacin [Cipro] 500 mg PO BID 10 Days #20 tab Mupirocin 2 % Oint [Bactroban Oint] 22 gm TOP BID 14 Days #1 tube Home Medications: Ambulatory Orders Pravastatin Sodium 40 mg PO BEDTIME 12/07/12 Losartan Potassium [Cozaar] 50 mg PO DAILY 05/19/14 Aspirin [Adult Aspirin Regimen] 81 mg PO DAILY 11/28/16 Metoclopramide HCl [Reglan] 5 mg PO TID 11/28/16 Montelukast [Singulair] 10 mg PO BID 11/28/16 Lesage-3 Fatty Acids [Fish Oil] 1 cap PO BID 11/28/16 Ropinirole Hydrochloride [Ropinirole HCl] 1 mg PO BEDTIME PRN 11/28/16 Vitamin E [E-400] 400 unit PO BID 11/29/16 Insulin NPH (Human) (Isophane) [Humulin N] 20 unit SC BEDTIME #0 11/30/16 Insulin NPH (Human) (Isophane) [Humulin N] 35 unit SC DAILY #0 11/30/16 Insulin Regular (Human) [Novolin R] 10 unit SC AC PRN #0 11/30/16 Ciprofloxacin [Cipro] 500 mg PO BID 10 Days #20 tab 05/14/17 Mupirocin 2 % Oint [Bactroban Oint] 22 gm TOP BID 14 Days #1 tube 05/14/17 Oxybutynin Chloride 5 mg PO BEDTIME 05/14/17 Pantoprazole Tablet [Protonix] 40 mg PO ACBK 05/14/17 Polyethylene Glycol 3350 [Miralax] 17 gm PO DAILY 05/14/17 Additional Instructions: Follow up with primary 15 May 2017;elevate leg 20 degrees at bedtime
== END 2017-05-14 11:40 | disposition home or self-care (01) ==
LOC: ER 10:55
DX: I87.391 Chronic venous hypertension (idiopathic) with other complications of right lower extremity (principal); J44.9 Chronic obstructive pulmonary disease, unspecified; I10 Essential (primary) hypertension; E11.43 Type 2 diabetes mellitus with diabetic autonomic (poly)neuropathy; K31.84 Gastroparesis; Z79.4 Long term (current) use of insulin; Z79.899 Other long term (current) drug therapy; Z79.82 Long term (current) use of aspirin

== ENCOUNTER → 2017-05-23 | Outpatient (CLI) | payer BC | END | disposition home or self-care (01) | LOC: GMAL 12:13 | PROVIDERS: ATTEND Family Medicine | DX: I50.30 Unspecified diastolic (congestive) heart failure (principal) ==

== ENCOUNTER → 2018-02-23 | Outpatient (CLI) | payer BC | LOC: GMAL 10:34 | PROVIDERS: ATTEND Family Medicine | DX: Z00.01 Encounter for general adult medical examination with abnormal findings (principal) ==

== ENCOUNTER → 2018-02-28 | Outpatient (CLI) | payer BC ==
--- NOTE | 2018-03-01 13:47 | MAM ---
EXAM DESCRIPTION: 3D Screening BILATERAL : Digital Mammography. CLINICAL HISTORY: 62 years Female ANNUAL SCREENING left breast cancer and lumpectomy November 2013.. No complaints. Lifetime risk of developing breast cancer (Tyrer-Cuzick model)(%): Not calculated due to personal history of breast cancer. COMPARISON: The digital 3-D screening bilateral mammography 11/09/2015.. TECHNIQUE: Bilateral CC and MLO projection full-field images, digital tomosynthesis mammographic technique. Bilateral digital 2-D full-field MLO images. CAD not available for tomosynthesis or 2-D images. FINDINGS: The breast parenchymal density pattern is: Scattered areas of fibroglandular density. No skin thickening or nipple retraction. Bilateral vascular calcifications. Architectural is distortion in the left breast at the prior biopsy site, anterior. Injection port for VAD partially obscures the posterior upper left breast on the MLO image. Bilateral solitary parenchymal calcifications. No new focal, stellate mass or density, focal asymmetry , and no suspicious microcalcifications bilaterally. Stable mammograms compared to prior study. Taking into account, differences in mammographic technique. IMPRESSION: Benign exam. BIRAD CATEGORY: 2 BENIGN FINDINGS. RECOMMENDATIONS: FOLLOW UP: Routine digital bilateral mammographic screening, one year interval from February 2018. Written communication explaining the IMPRESSION and follow-up, will be mailed to the patient and referring health care provider. According to the [employer], yearly mammograms are recommended starting at age 40 and continuing as long as a woman is in good health. Any breast change noted on a breast self-exam should be reported promptly to the patient's healthcare provider. Breast MRI is recommended for women with an approximately 20-25% or greater lifetime risk of breast cancer, including women with a strong family history of breast or ovarian cancer and women who have been treated for Hodgkin's disease. A negative mammographic report should not delay tissue diagnosis in patients with significant clinical history or physical findings. Extremely dense breast tissue limits the sensitivity of digital mammography. Electronically signed by: Ko Méndez MD 03/01/2018 1:46 PM [facility]
== END ==
LOC: MAMMO 11:02
PROVIDERS: ATTEND Family Medicine
DX: Z12.31 Encounter for screening mammogram for malignant neoplasm of breast (principal)

== ENCOUNTER → 2018-07-18 | Outpatient (CLI) | payer BC, OTHER | LOC: GMAL 14:22 | PROVIDERS: ATTEND Family Medicine | DX: D50.9 Iron deficiency anemia, unspecified (principal) ==

== ENCOUNTER → 2018-08-24 | Outpatient (CLI) | payer BC, OTHER ==
--- NOTE | 2018-08-24 10:00 | CT ---
EXAM DESCRIPTION: Abdomen/Pelvis w/Contrast CLINICAL HISTORY: 62 years Female, LEFT UPPER QUADRANT PAIN COMPARISON: CT abdomen and pelvis dated November 28, 2016. TECHNIQUE: Contiguous 3 mm axial images were obtained from lung bases to the level of proximal femora after the administration of intravenous and oral contrast. Sagittal and coronal reconstructions were reviewed. FINDINGS: The visualized lower thorax demonstrates a stable punctate 2 mm noncalcified nodule in the lateral segment of right middle lobe. No pleural or pericardial effusion. Small bullous change is noted in the right lower lobe. The liver appears grossly unremarkable with no focal mass lesion or intrahepatic ductal dilatation. The gallbladder is surgically absent. The spleen and right adrenal gland appears grossly unremarkable. The left adrenal gland again demonstrates a 5.3 cm left adrenal nodule containing some fat density consistent with myelolipoma, however demonstrates interval increase in size in comparison to the prior CT abdomen pelvis dated November 28, 2016, which measured 4.7 cm on prior examination. Diffuse fatty infiltration of the pancreas noted, otherwise appears unremarkable. Both kidneys enhance symmetrically with no evidence of hydronephrosis, hydroureter or nephrolithiasis. However interval development of a 3.4 x 3.4 cm exophytic cystic lesion along the posterior aspect of upper pole of right kidney with surrounding fat stranding is concerning for an infected hemorrhagic cyst versus an abscess. The cystic lesion is closely related to the right psoas muscle with no clear fat plane along the inferior aspect. However cystic renal malignancy cannot be completely excluded. Again noted is mild bilateral perinephric stranding likely appears chronic. Small hiatal hernia is again noted. The stomach is collapsed limiting detail evaluation. The small and large bowel loops appear grossly unremarkable with no abnormal dilatation or wall thickening. Scattered diverticula are noted throughout the colon with no evidence of acute diverticulitis. No free intraperitoneal air or fluid. No enlarged abdominal or retroperitoneal lymphadenopathy. Again noted is stable 4.2 cm anterior wall abdominal defect at the umbilicus level with the focal fat herniation. No evidence of bowel herniation or obstruction. Again noted is subcutaneous fat stranding in the left lower anterior abdominal wall, slightly worse in comparison to the prior exam concerning for inflammation. The abdominal aorta is nonaneurysmal with moderate atherosclerotic calcifications. The IVC appears grossly unremarkable. The urinary bladder is moderately distended and appears grossly unremarkable. The uterus and right ovary appears grossly unremarkable. Again noted is a 4.6 cm left adnexal cyst probably of left ovary the origin with slight interval decrease in comparison to prior exam measuring 5.1 cm. No free fluid in the pelvis. Review of the bone windows demonstrate no acute osseous abnormality. Diffuse osteopenia of the visualized thoracolumbar spine noted. IMPRESSION: 1. Interval development of a 3.4 cm exophytic cystic lesion along the posterior aspect of upper pole of right kidney with surrounding fat stranding concerning for an infected hemorrhagic cyst versus an abscess. The cystic lesion is closely abutting the right psoas muscle. Cystic renal mass cannot be completely excluded. Further evaluation with needle biopsy or CT renal mass protocol is recommended. 2. Interval increase in the previously noted left adrenal nodule, now measuring 5.3 cm versus 4.[address] abdomen pelvis dated November 28, 2016. This most likely represents an adrenal myelolipoma. Because of the interval increase in size and risks of hemorrhage, surgical consultation is recommended. 3. Stable 4.3 cm left ovarian cyst. 4. Stable 4.2 cm anterior abdominal wall defect with focal fat herniation which appears stable from prior exam. No evidence of bowel herniation or obstruction. 5. Persistent left lower anterior abdominal wall subcutaneous stranding with slight interval worsening concerning for inflammation/panniculitis. Clinical correlation with physical examination is recommended. This exam was performed according to our departmental dose-optimization program, which includes automated exposure control, adjustment of the mA and/or kV according to patient size and/or use of iterative reconstruction technique. Electronically signed by: Matthew Infante MD 08/24/2018 9:58 AM CDT
== END ==
LOC: CT 07:53
DX: N28.9 Disorder of kidney and ureter, unspecified (principal); E27.9 Disorder of adrenal gland, unspecified; Q79.59 Other congenital malformations of abdominal wall; N83.202 Unspecified ovarian cyst, left side; L98.9 Disorder of the skin and subcutaneous tissue, unspecified

== ENCOUNTER → 2018-08-30 | Outpatient (CLI) | payer BC, OTHER ==
--- NOTE | 2018-08-30 10:52 | CT ---
PROVIDED CLINICAL HISTORY/REASON FOR EXAM: NEOPLASM OF UNCERTAIN BEHAVIOR OF UNSPEC KIDNEY STUDY TYPE/TECHNIQUE: CT ABDOMEN WITHOUT THEN WITH IV CONTRAST This exam was performed according to our departmental dose-optimization program, which includes automated exposure control, adjustment of the mA and/or kV according to patient size and/or use of iterative reconstruction technique. COMPARISON: 03/31/2016, August 24, 2018 FINDINGS: Visualized lung bases are grossly unremarkable. The liver is unremarkable. No suspicious hepatic lesion. No biliary dilatation. Cholecystectomy The spleen and pancreas are unremarkable. Right adrenal gland is unremarkable. Redemonstrated left myelolipoma measuring 5 cm, axial 35. Nonenhancing right renal cystic lesion measuring 4.7 cm series 4 image 46, which is closely associated, and may invade the adjacent psoas muscle. No hydronephrosis. No obstructing ureteral stone. No evidence of bowel obstruction or focal inflammatory change. No findings to suggest appendicitis. No adenopathy. No focal fluid collection. No free air. Normal caliber abdominal aorta. Moderate diffuse atherosclerotic disease. No acute or suspicious osseous abnormality. Scattered degenerative changes present. IMPRESSION: 1. Interval enlargement of the cystic lesion associated with the right kidney measuring 4.7 cm. Findings likely reflect a renal abscess, which is closely associated with in the adjacent psoas muscle. A cystic renal neoplasm is possible, however felt less likely. 2. Stable left myelolipoma. Recommend surgical consultation. Electronically signed by: Deejay Guerrero MD 08/30/2018 10:50 AM CDT
== END ==
LOC: CT 08:13
PROVIDERS: ATTEND Family Medicine
DX: D41.00 Neoplasm of uncertain behavior of unspecified kidney (principal); D17.71 Benign lipomatous neoplasm of kidney

== ENCOUNTER → 2018-09-28 | Outpatient (CLI) | payer BC, OTHER ==
--- NOTE | 2018-09-28 09:30 | CT ---
PROVIDED CLINICAL HISTORY/REASON FOR EXAM: RENAL ABCESS STUDY TYPE/TECHNIQUE: CT ABDOMEN WITHOUT IV CONTRAST This exam was performed according to our departmental dose-optimization program, which includes automated exposure control, adjustment of the mA and/or kV according to patient size and/or use of iterative reconstruction technique. COMPARISON: August 30, 2018 FINDINGS: Right basilar atelectasis. The contours of the liver, spleen, pancreas and right adrenal gland are unremarkable. Stable left adrenal myelolipoma measuring 5 cm (recommend surgical consultation). The left kidney is unremarkable. No evidence of bowel obstruction or focal inflammatory change. No findings to suggest appendicitis. No adenopathy. No focal fluid collection. No free air. Normal caliber abdominal aorta. Interval decrease in conspicuity of the previously identified fluid collection associated with the posterior interpolar right kidney. There is soft tissue spanning the posterior right renal cortical margin and the adjacent right psoas muscle. No drainable fluid collection is identified. No acute or suspicious osseous abnormality. Scattered degenerative changes present. IMPRESSION: 1. Interval decrease in size of the previously identified right renal abscess. No drainable fluid component. 2. Stable left adrenal myelolipoma. Recommend surgical consultation. Electronically signed by: Deejay Guerrero MD 09/28/2018 9:29 AM CDT
== END ==
LOC: CT 09:00
PROVIDERS: ATTEND Urology
DX: N15.1 Renal and perinephric abscess (principal); D35.02 Benign neoplasm of left adrenal gland

== ENCOUNTER → 2019-02-01 | Outpatient (CLI) | payer BC, OTHER | LOC: LAB.O 09:21 | PROVIDERS: ATTEND Surgery | DX: D41.00 Neoplasm of uncertain behavior of unspecified kidney (principal) ==

== ENCOUNTER → 2019-11-22 | Outpatient (CLI) | payer OTHER | LOC: GMAL 13:23 | PROVIDERS: ATTEND Family Medicine | DX: D50.8 Other iron deficiency anemias (principal); R53.82 Chronic fatigue, unspecified ==

== ENCOUNTER → 2019-12-06 | Outpatient (CLI) | payer OTHER | LOC: GMAL 09:36 | PROVIDERS: ATTEND Family Medicine | DX: E34.9 Endocrine disorder, unspecified (principal); R53.82 Chronic fatigue, unspecified ==

== ENCOUNTER → 2020-02-17 | Outpatient (CLI) | payer OTHER | LOC: GMAL 11:23 | PROVIDERS: ATTEND Family Medicine | DX: D50.8 Other iron deficiency anemias (principal); I10 Essential (primary) hypertension; Z79.899 Other long term (current) drug therapy; E11.40 Type 2 diabetes mellitus with diabetic neuropathy, unspecified; E78.49 Other hyperlipidemia ==